=== PATIENT | female | born 1970 | race Caucasian/White ===

== ENCOUNTER 2016-12-04 17:17 | Emergency (ER) | payer OTHER ==
[~2016-12-04] VITALS: Ht 170.2 cm; Wt 82.0 kg
[~2016-12-04 17:17] MED LIST: ALPR-138 PO; MEVA40TA6 PO; TYLE3 PO
[2016-12-04 17:18] VITALS: BP 140/98; PULSE 76; RESP 16; TEMP 97.9; O2SAT 97
--- NOTE | 2016-12-04 17:45 | PD ---
Physical Exam Date Seen by Provider: Dec 04, 2016 Time Seen by Provider: 17:42 Narrative Patient seen in Triage with 3 days of worsening right upper abdominal pain, nausea and radiating pain into the back and up between the shoulders. Patient denies Fever or vomiting, or changes in bowels or urine. Pain worse with food. not worse with exertion. No Significant ETOH or Diabeties Hx. Still has Gallbladder. EKG Ordered. Vital Signs Stable. Patient awaiting Bed placement. Data Data Last Documented VS Vital Signs Date Time Temp Pulse Resp B/P Pulse Ox O2 Delivery O2 Flow Rate FiO2 12/04/16 17:18 97.9 76 16 140/98 97 Room Air Orders Electrocardiogram (12/04/16 ) [facility] Medical Record Reviewed: Yes Supervised Visit with KENDALL: Yes Condition: Stable Jimbo Page Dec 04, 2016 17:45
[2016-12-04 19:48] VITALS: BP 146/67; PULSE 71; RESP 20; O2SAT 98
[2016-12-04] MEDS ORDERED: LOVA40TA PO (19:55)
[2016-12-04] MEDS ORDERED: ALPR0.5T3 PO (19:55)
[2016-12-04] MEDS ORDERED: CITA20TA4 PO (19:55)
[2016-12-04] MEDS ORDERED: SODIUM CHLOR 0.9% 1000 ML INJ 1,000 ML IV SCH (20:19)
--- NOTE | 2016-12-04 20:26 | PD ---
HPI Chief Complaint: Abdominal Pain Time Seen by Provider: 20:11 Travel History International Travel<30 days: No Contact w/Intl Traveler<30days: No Traveled to known affect area: No History of Present Illness HPI 46 yo F, c/o 5 days nausea with RUQ abd pain. Pain is worse with PO intake. Pt reports eating less 2/2 pain. Pain radiates to the back. In ER pain is quite mild. She reports progressive worsening in pain severity. No fever or diarrhea reported. She denies hx gallbladder/liver/pancreas disease. Tums and alton elly at home were not helpful. Her past medical history includes hyperlipidemia and anxiety. She has a history of ectopic 2 and partial hysterectomy for prior surgical hx. PMD Dr Mei. [facility] Past Medical History Anxiety: Yes High Cholesterol: Yes Reproductive: Yes (HX OF 2 ECTOPIC PREG. IN PAST) Tetanus Vaccination: Unknown Influenza Vaccination: No ?: Not : 3 Para: 1 Miscarriage: 2 Ectopic : Yes (x 2 with surgery) Past Surgical History Hysterectomy: Yes (Partial ) Social History Alcohol Use: No Tobacco Use: Yes (APPROX 10 PER DAY) Substance Use: No Allergies-Medications (Allergen,Severity, Reaction): Coded Allergies: Keflex (Verified Allergy, Severe, 01/27/09) Reported Meds & Prescriptions Reported Meds & Active Scripts Active Phenergan (Promethazine HCl) 25 Mg Tab 25 Mg PO Q6H PRN Reported Citalopram (Citalopram Hydrobromide) 20 Mg Tab 20 Mg PO DAILY Alprazolam 0.5 Mg Tab 0.5 Mg PO DAILY Lovastatin 40 Mg Tab 40 Mg PO DAILY Review of Systems Except as stated in HPI: all other systems reviewed are Neg General / Constitutional: No: Fever, Chills Gastrointestinal: Positive: Nausea, Abdominal Pain, Loss of Appetite Physical Exam Narrative GENERAL: 46 yo F, WNWD, NAD, speaking full sentences SKIN: Warm and dry. HEAD: Atraumatic. Normocephalic. EYES: Pupils equal and round. No scleral icterus. No injection or drainage. ENT: No nasal bleeding or discharge. Mucous membranes pink and moist. NECK: Trachea midline. No JVD. CARDIOVASCULAR: Regular rate and rhythm. RESPIRATORY: No accessory muscle use. Clear to auscultation. Breath sounds equal bilaterally. GASTROINTESTINAL: Soft. Minimal epigastric tenderness. No TTP along the flanks. MUSCULOSKELETAL: Extremities without clubbing, cyanosis, or edema. No obvious deformities. NEUROLOGICAL: Awake and alert. No obvious cranial nerve deficits. Motor grossly within normal limits. Five out of 5 muscle strength in the arms and legs. Normal speech. PSYCHIATRIC: Appropriate mood and affect; insight and judgment normal. Data Data Last Documented VS Vital Signs Date Time Temp Pulse Resp B/P Pulse Ox O2 Delivery O2 Flow Rate FiO2 12/04/16 21:21 51 16 117/57 97 Room Air 12/04/16 17:18 97.9 VS reviewed Orders Electrocardiogram (12/04/16 ) Complete Blood Count With Diff (12/04/16 20:19) Comprehensive Metabolic Panel (12/04/16 20:19) Lipase (12/04/16 20:19) Urinalysis - C+S If Indicated (12/04/16 20:19) Iv Access Insert/Monitor (12/04/16 20:19) Ecg Monitoring (12/04/16 20:19) Oximetry (12/04/16 20:19) Ondansetron Inj (Zofran Inj) (12/04/16 20:30) Sodium Chlor 0.9% 1000 Ml Inj (Ns 1000 M (12/04/16 20:19) Sodium Chloride 0.9% Flush (Ns Flush) (12/04/16 20:30) Al-Mag Hy-Si 40-40-4 Mg/Ml Liq (Mag-Al P (12/04/16 20:30) Lidocaine 2% Viscous (Xylocaine 2% Visco (12/04/16 20:30) Labs Laboratory Tests Test 12/04/16 20:20 White Blood Count 12.1 TH/MM3 Red Blood Count 4.94 MIL/MM3 Hemoglobin 15.1 GM/DL Hematocrit 44.2 % Mean Corpuscular Volume 89.6 FL Mean Corpuscular Hemoglobin 30.6 PG Mean Corpuscular Hemoglobin 34.1 % Concent Red Cell Distribution Width 13.2 % Platelet Count 296 TH/MM3 Mean Platelet Volume 9.7 FL Neutrophils (%) (Auto) 47.9 % Lymphocytes (%) (Auto) 41.9 % Monocytes (%) (Auto) 6.5 % Eosinophils (%) (Auto) 3.0 % Basophils (%) (Auto) 0.7 % Neutrophils # (Auto) 5.8 TH/MM3 Lymphocytes # (Auto) 5.1 TH/MM3 Monocytes # (Auto) 0.8 TH/MM3 Eosinophils # (Auto) 0.4 TH/MM3 Basophils # (Auto) 0.1 TH/MM3 CBC Comment DIFF FINAL Differential Comment Urine Color LIGHT-YELLOW Urine Turbidity CLEAR Urine pH 5.5 Urine Specific [place] 1.005 Urine Protein NEG mg/dL Urine Glucose (UA) NEG mg/dL Urine Ketones NEG mg/dL Urine Occult Blood NEG Urine Nitrite NEG Urine Bilirubin NEG Urine Urobilinogen LESS THAN 2.0 MG/DL Urine Leukocyte Esterase NEG Urine RBC LESS THAN 1 /hpf Urine WBC LESS THAN 1 /hpf Microscopic Urinalysis Comment CULT NOT INDICATED Sodium Level 140 MEQ/L Potassium Level 3.9 MEQ/L Chloride Level 105 MEQ/L Carbon Dioxide Level 26.5 MEQ/L Anion Gap 9 MEQ/L Blood Urea Nitrogen 11 MG/DL Creatinine 0.68 MG/DL Estimat Glomerular Filtration 92 ML/MIN Rate Random Glucose 88 MG/DL Calcium Level 9.2 MG/DL Total Bilirubin 0.2 MG/DL Aspartate Amino Transf 18 U/L (AST/SGOT) Alanine Aminotransferase 22 U/L (ALT/SGPT) Alkaline Phosphatase 79 U/L Total Protein 7.7 GM/DL Albumin 4.0 GM/DL Lipase 141 U/L [facility] Medical Decision Making Medical Screen Exam Complete: Yes Emergency Medical Condition: Yes Medical Record Reviewed: Yes Differential Diagnosis Constipation, Gastritis, Acute Cholecystitis, Biliary Colic, Pancreatitis, [place] , Hepatitis, Bowel Obstruction, Cystitis, Mesenteric Ischemia, AAA, Appendicitis , Renal Stone/Hydronephrosis, GERD, perforated viscous Narrative Course CBC & BMP Diagram 12/04/16 20:20 LFTs normal Lipase normal UA normal Pt reports feeling much better after GI cocktail, Zofran and IVF. She reports feeling hungry for the first time in a week. F/u w GI discussed. Pt amenable. Diet modification discussed. Diagnosis Primary Impression: Abdominal pain Qualified Code: R10.9 - Abdominal pain, unspecified location Additional Impression: Nausea Referrals: DR MEI 2 days Ramiro Delcid MD 2 days Additional Instructions: You have a choice when it comes to health care, and we are glad that you chose [facility]. Hopefully, we have met your expectations on today's visit. You are welcome to return to [facility] at any time, as we are committed to meeting the health care needs of our community. Med/Other Pt SpecificInfo: Prescription(s) given Scripts Promethazine (Phenergan)25 Mg Tab25 Mg PO Q6H PRN (Nausea/Vomiting) #20 TAB Ref 0 Prov:Martir Anderson MD 12/04/16 Disposition: 01 DISCHARGE HOME Condition: Stable Martir Anderson MD Dec 04, 2016 20:26
[2016-12-04] MEDS ORDERED: ALUMINUM/MAGNESIUM/SIMETH 30 ML CUP PO ONE (20:30)
[2016-12-04] MEDS ORDERED: ONDANSETRON HCL 4 MG/2 ML VIAL IVP ONE (20:30)
[2016-12-04] MEDS ORDERED: LIDOCAINE VISCOUS 2% SOLN 15 ML UDC PO ONE (20:30)
[2016-12-04] MEDS ORDERED: SODIUM CHLORIDE 0.9% FLUSH 10 ML FLUSH IV FLUSH PRN (20:30)
[2016-12-04] MEDS ORDERED: PROM25TA5 PO (20:32)
[2016-12-04 21:09] LABS: AUTOMATED NEUTROPHIL # 5.8 TH/MM3 (1.8-7.7); BASOPHIL # 0.1 TH/MM3 (0-0.2); BASOPHIL % 0.7 % (0.0-2.0); EOSINOPHIL # 0.4 TH/MM3 (0-0.4); HEMATOCRIT 44.2 % (35.0-46.0); HEMO FLAGS DIFF FINAL; LYMPH % 41.9 % (9.0-44.0); LYMPHOCYTE # 5.1 TH/MM3 (1.0-4.8); MEAN CELL VOLUME 89.6 FL (80.0-100.0); MEAN CORPUSCULAR HEMOGLOBIN 30.6 PG (27.0-34.0); MEAN CORPUSCULAR HGB CONC 34.1 % (32.0-36.0); MONO % 6.5 % (0.0-8.0); NEUT % 47.9 % (16.0-70.0); PLATELET COUNT 296 TH/MM3 (150-450); RED BLOOD COUNT 4.94 MIL/MM3 (4.00-5.30); RED CELL DISTRIBUTION WIDTH 13.2 % (11.6-17.2); WHITE BLOOD COUNT 12.1 TH/MM3 (4.0-11.0)
[2016-12-04 21:14] LABS: BLOOD, URINE NEG (NEG); GLUCOSE,URINE NEG (NEG); KETONE, URINE NEG (NEG); NITRITE,URINE NEG (NEG); PH, URINE 5.5 (5.0-8.5); URINE COLOR LIGHT-YELLOW (YELLW/STRAW)
[2016-12-04 21:17] LABS: COMMENT (UR) CULT NOT INDICATED; CULTURE IF INDICATED CULT NOT INDICATED
[2016-12-04 21:21] VITALS: BP 117/57; PULSE 51; RESP 16; O2SAT 97
[2016-12-04 21:29] LABS: ALKALINE PHOSPHATASE 79 U/L (45-117); ALT (GPT) 22 U/L (10-53); ANION GAP 9 MEQ/L (5-15); AST (GOT) 18 U/L (15-37); BICARBONATE 26.5 MEQ/L (21.0-32.0); BLOOD UREA NITROGEN 11 MG/DL (7-18); CHLORIDE 105 MEQ/L (98-107); GLOMERULAR FILTRATION RATE 92 ML/MIN (>89); POTASSIUM 3.9 MEQ/L (3.5-5.1); SODIUM (NA) 140 MEQ/L (136-145); TOTAL BILIRUBIN ADULT 0.2 MG/DL (0.2-1.0)
[2016-12-04 21:57] VITALS: BP 123/57
--- NOTE | 2016-12-05 16:24 | EKG ---
Date Performed: 12/04/2016 Time Performed: 18:05:42 PTAGE: 46 years EKG: Sinus rhythm NORMAL ECG NO PREVIOUS TRACING DOCTOR: Emanuel Peoples Interpretating Date/Time 12/05/2016 16:21:45
== END 2016-12-04 21:59 | disposition home or self-care (01) ==
LOC: NEPE 17:17
DX: R10.9 Unspecified abdominal pain (principal); E78.00 Pure hypercholesterolemia, unspecified; Z72.0 Tobacco use
CPT/HCPCS: 80053; 81001; 83690; 85025; 93005; 96361; 96374; 99284; J2405; J7030